=== PATIENT | male | born 1980 | race Caucasian/White ===

== ENCOUNTER 2016-08-03 09:24 | Emergency (ER) | payer BC ==
[2016-08-03 09:37] VITALS: BP 138/82; PULSE 78; RESP 18; TEMP 98; O2SAT 97
--- NOTE | 2016-08-03 10:27 | UCPHY ---
H & P Time Seen by Provider: 08/03/16 10:09 Patient Type: Established HPI/ROS: This patient presents with a chief complaint of cough for 5 weeks and also a left hand injury which occurred yesterday. 1. The cough has been persistent for 5 weeks but is unassociated with chest pain or shortness of breath. It started when with cold symptoms consisting of nasal congestion is sore throat but only the nasal congestion persists. He has not had fever. 2. The left hand was injured in a climbing fall hand he is not sure of the exact mechanism but pain is maximal on the radial side of the hand involving primarily the index finger and thumb but there is some pain in his proximal hand with movement of his wrist. Initially had some numbness in the radial aspect of his index finger but this has resolved. Smoking Status: Never smoked Physical Exam: Chest: Breath sounds clear and symmetric without wheezes or rhonchi or rales. There is no chest wall tenderness. Left hand: There is ecchymosis over the PIP joint with joint crease on the flexor surface of the index finger. There is tenderness in this area as well. There is an abrasion overlying the thenar eminence which is superficial and healing well. There is no tenderness of the thumb and the ulnar collateral ligaments there are intact. There is tenderness in the anatomical snuffbox which is prominent. There is minimal swelling in this area. CMS is intact. Constitutional: Initial Vital Signs Temperature (C) 36.6 C 08/03/16 09:34 Heart Rate 78 08/03/16 09:34 Respiratory Rate 18 08/03/16 09:34 Blood Pressure 138/82 H 08/03/16 09:34 O2 Sat (%) 97 08/03/16 09:34 O2 Delivery Mode Room Air Allergies/Adverse Reactions: No Known Allergies Allergy (Unverified 01/07/15 20:50) Home Medications: Medication Instructions Recorded Valacyclovir HCl [Valtrex] 1,000 mg PO TID #21 tab 01/07/15 Medical Decision Making - Diagnostics Imaging: X-rays of the hand show a crack fracture of the navicular bone. No fractures are identified involving the metacarpals or the phalangeal joints specifically the PIP joint of the index finger. ED Course/Re-evaluation: A fiberglass thumb spica was applied to the hand and wrist. The 2nd and 3rd digits were luis-taped. Differential Diagnosis: I feel the cough is not related to a bacterial infection and consequently antibiotics were not prescribed. There is no evidence for reactive airway disease. I feel that this is a non serious problem. Departure - Departure Clinical Impression: Fracture of navicular bone of wrist Qualifiers: Encounter type: initial encounter Fracture alignment: nondisplaced Laterality: left Instructions: Scaphoid Fracture (ED), Splint Care (ED), Finger Sprain (ED) Additional Instructions: You should have of your injuries re-evaluated in 7-10 days by the orthopedist whose name is listed be low. Wear your splint continuously i until told not to do so.Keep your fingers luis- taped for the next week and thereafter for comfort. Apply ice to the area of injury for 20 minutes every 2 hours for 3 days following your injury. After 3 days (72 hours) it is safe to apply heat frequently throughout the day and I would recommend you're doing so. However if ice feels better it is okay to do this. Elevate the area of the injury as much as possible for the next 2 or 3 days or longer if you have a serious injury. If you have been told that it is safe to use the injured extremity do so in a limited fashion for the first 2-3 days. Afterwards left pain be your guide. Adult Pain & Fever Control: We recommend Acetaminophen (Tylenol) and Ibuprofen (Motrin, Advil) for pain and fever control. When fever is high or pain severe, both drugs can be used at the same time, but at different intervals. Please note the time differences. Your dose is: Acetaminophen [650]mg every 4 to 6 hours ibuprofen [600]mg every [6] hours with food OR naproxen Sodium (Aleve) [440]mg every 12 hours. Note: do not take Acetaminophen with Hydrocodone (Vicodin, Lortab) or Oxycodone (Percocet). These medications also contain Acetaminophen. No more than 3000 mg of Acetaminophen should be taken in 24 hours (for an adult) . The maximal dose of ibuprofen that it is safe in a 24-hour period is 2400 mg. You may take 400 mg every 4 hours, 600 mg every 6 hours or 800 mg every 8 hours safely. Referrals: Filemon Ha MD [Medical Doctor] - As per Instructions - PQRS PQRS Measurement: Not applicable
== END 2016-08-03 10:57 | disposition home or self-care (01) ==
LOC: CED 09:24
PROC: 2W3FX1Z Immobilization of Left Hand using Splint (ICD-10-PCS; principal; 2016-08-03)
DX: S62.025A Nondisplaced fracture of middle third of navicular [scaphoid] bone of left wrist, initial encounter for closed fracture (principal); R05 Cough; Y93.31 Activity, mountain climbing, rock climbing and wall climbing; W19.XXXA Unspecified fall, initial encounter
CPT/HCPCS: 29125-PO; 73130-PO; 99214-PO; G0463-PO